=== PATIENT | male | born 1985 | race Caucasian/White ===

== ENCOUNTER 2024-10-21 17:50 | Emergency (ER) | payer SELFPAY ==
[~2024-10-21] VITALS: Ht 170.2 cm; Wt 80.0 kg
[2024-10-21 18:00] VITALS: O2SAT 99
[2024-10-21] MEDS: IBUPROFEN 600MG TABLET PO ONE (23:13)
[2024-10-21] MEDS ORDERED: IBUP-2029 MT (23:36)
[2024-10-22 00:25] VITALS: BP 132/64; PULSE 77; RESP 16; TEMP 36.61404; O2SAT 99
== END 2024-10-22 00:32 | disposition home or self-care (01) ==
LOC: ER 18:23
DX: S82.201A Unspecified fracture of shaft of right tibia, initial encounter for closed fracture (principal); Z98.890 Other specified postprocedural states; W51.XXXA Accidental striking against or bumped into by another person, initial encounter; Y93.9 Activity, unspecified; Y92.89 Other specified places as the place of occurrence of the external cause; Y99.8 Other external cause status
CPT/HCPCS: 73590; 99283

== ENCOUNTER 2025-08-15 13:55 | Emergency (ER) | payer OTHER, MEDICAID ==
[~2025-08-15] VITALS: Ht 162.6 cm; Wt 79.0 kg
[~2025-08-15 13:55] MED LIST: IBUP-1455 MT
[2025-08-15 13:58] VITALS: O2SAT 98
[2025-08-15] MEDS: KETOROLAC 30MG/ML VIAL IM ONE (15:06)
[2025-08-15] MEDS: LIDOCAINE 5% PATCH TOP SCH (15:07)
[2025-08-15] MEDS ORDERED: LIDO700A30 TP (16:49)
[2025-08-15] MEDS ORDERED: TOPUD MT (16:49)
[2025-08-15] MEDS ORDERED: IBUP-2028 MT (16:49)
[2025-08-15 16:58] VITALS: BP 118/68; PULSE 66; RESP 16; TEMP 36.7; O2SAT 98
== END 2025-08-15 16:58 | disposition home or self-care (01) ==
LOC: ER 13:55
DX: S39.012A Strain of muscle, fascia and tendon of lower back, initial encounter (principal); S09.8XXA Other specified injuries of head, initial encounter; X58.XXXA Exposure to other specified factors, initial encounter; Y93.89 Activity, other specified; Y92.89 Other specified places as the place of occurrence of the external cause; Y99.8 Other external cause status
CPT/HCPCS: 99285; 70450; 72100; 96372; J1885